=== PATIENT | female | born 1935 | race Caucasian/White ===

== ENCOUNTER 2020-10-27 12:05 | Outpatient (REF) | payer MEDICARE, SELFPAY ==
[2020-10-27 13:46] LABS: Abs Immature Grans 0.03 10^3/uL (0.0-0.06); Absolute Basophil Count 0.02 10^3/uL (0.0-0.2); Absolute Eosinophil Count 0.28 10^3/uL (0.0-0.7); Absolute Lymphocyte Count 1.43 10^3/uL (1.2-3.4); Absolute Monocyte Count 0.84 10^3/uL (0.1-0.8); Absolute Neutrophil Count 5.87 10^3/uL (1.2-6.7); Basophils % 0.2; Eosinophils % 3.3; HCT 29.8 % (36.0-46.0); HGB 9.8 g/dL (11.2-15.7); Immature Grans % 0.4; Lymphocytes % 16.9; MCHC 32.9 % (32.0-36.0); MCV 94.3 fL (80-95); MPV 11.2 fL (8.0-11.0); Monocytes % 9.9; Neutrophils % 69.3; Nucleated RBC 0 %; Platelet Count 237 10^3/uL (130-400); RBC 3.16 10^6/uL (3.93-5.22); RDW 12.4 % (11.7-14.6); RDW-SD 43.2 fL; WBC 8.47 10^3/uL (4.4-10.8)
[2020-10-27 13:48] LABS: ALT 10 U/L (14-59); AST 13 U/L (15-37); Albumin 2.7 g/dL (3.4-5.0); Alkaline Phosphatase 88 U/L (46-116); Anion Gap 6.7 mmol/L (3-11); BUN 16 mg/dL (7-18); Bilirubin, Total 0.2 mg/dL (0.2-1.0); C-Reactive Protein 0.49 mg/dL (0.0-0.3); CO2 29.3 mmol/L (21.0-32.0); CREATININE 0.88 mg/dL (0.55-1.02); Calcium 8.7 mg/dL (8.5-10.1); Chloride 101 mmol/L (98-107); Glucose 158 mg/dL (74-106); Potassium 4.4 mmol/L (3.5-5.1); Sodium 137 mmol/L (136-145); Total Protein 6.3 g/dL (6.4-8.2)
== END 2020-10-27 12:25 ==
LOC: LBN 12:05
PROVIDERS: PCP Family Medicine; Visit Provider Nurse Practitioner
DX: M00.031 Staphylococcal arthritis, right wrist (principal)
CPT/HCPCS: 80053; 85025; 86140

== ENCOUNTER 2022-08-11 10:40 | Outpatient (CLI) | payer MEDICARE, SELFPAY ==
--- NOTE | 2022-08-11 10:00 | DI.RAD_ITS ---
Exam(s) XR HIP RT AP LAT ONLY EXAM: XR HIP RT AP LAT ONLY CLINICAL HISTORY: RIGHT HIP PAIN. TECHNIQUE: 2D digital imaging was performed. COMPARISON: CR XR HIP RT AP LAT ONLY from 07/15/2022 FINDINGS: Two views: No acute hip fracture evident. Osseous right hemipelvis appears unremarkable. Some vascular calcifi cation noted in the femoral artery. Mild-moderate degenerative changes are noted in the hip joint. IMPRESSION: DATA REPOSITORY: RADIATION DOSE DELIVERED:
== END 2022-08-11 10:41 | disposition home or self-care (01) ==
LOC: DIORS 10:40
PROVIDERS: PCP Family Medicine; Referring Provider Family Medicine; Visit Provider Physician Assistant
DX: M25.551 Pain in right hip (principal); M48.00 Spinal stenosis, site unspecified; Z63.4 Disappearance and death of family member
CPT/HCPCS: 99205; 73502

== ENCOUNTER 2023-04-08 14:15 | Outpatient (REF) | payer MEDICARE, SELFPAY ==
[2023-04-08 14:59] LABS: Abs Immature Grans 0.04 10^3/uL (0.0-0.06); Absolute Basophil Count 0.06 10^3/uL (0.0-0.2); Absolute Eosinophil Count 0.53 10^3/uL (0.0-0.7); Absolute Neutrophil Count 5.71 10^3/uL (1.2-6.7); Basophils % 0.7; HCT 37.2 % (36.0-46.0); Immature Grans % 0.5; Lymphocytes % 22.6; MCH 28.4 pg (27.0-33.0); MCHC 32.3 % (32.0-36.0); MCV 88 fL (80-95); MPV 11.2 fL (8.0-11.0); Monocytes % 5.7; Neutrophils % 64.5; Platelet Count 205 10^3/uL (130-400); RBC 4.22 10^6/uL (3.93-5.22); RDW 13.1 % (11.7-14.6); RDW-SD 42.5 fL; WBC 8.84 10^3/uL (4.4-10.8)
[2023-04-08 15:28] LABS: Anion Gap 6.3 mmol/L (3-11); BUN 20 mg/dL (7-18); CO2 30.7 mmol/L (21.0-32.0); CREATININE 0.8 mg/dL (0.55-1.02); Chloride 104 mmol/L (98-107); Estimated GFR 72.16 (mL/min/1.73m2); Glucose 141 mg/dL (74-106); Potassium 5.2 mmol/L (3.5-5.1); Sodium 141 mmol/L (136-145)
[2023-04-08 19:27] LABS: Hemoglobin A1C 5.7 % (<5.7)
== END 2023-04-08 14:16 | disposition home or self-care (01) ==
LOC: LBN 14:15
PROVIDERS: PCP Family Medicine; Visit Provider Family Medicine
DX: E11.9 Type 2 diabetes mellitus without complications (principal); I10 Essential (primary) hypertension
CPT/HCPCS: 80048; 83036; 85025